=== PATIENT | female | born 1965 | race Caucasian/White ===

== ENCOUNTER 2021-10-12 18:28 | Emergency (ER) | payer OTHER ==
[2021-10-12 19:17] LABS: BASOPHIL 0.5 % (0-2); EOSINOPHIL 2.8 % (0-5); HCT 37.6 % (37.0-47.0); HGB 12.1 g/dl (12.5-16.0); LYMPHOCYTE 23.4 % (15-48); MCH 28.6 pg (25.0-31.0); MCHC 32.2 g/dL (32.0-36.0); MCV 88.9 fL (78.0-100.0); MONOCYTE 5.4 % (0-12); MPV 10.4 fL (6.0-9.5); NEUTROPHIL 66.5 % (41-80); NRBC 0; PLT 333 K/uL (150-400); RBC 4.23 M/uL (4.20-5.40); WBC 14.1 K/uL (4.0-10.5)
[2021-10-12 19:36] LABS: ALBUMIN 3.5 g/dL (3.4-5.0); BILIRUBIN - TOTAL 0.2 mg/dL (0.2-1.0); BUN/CREAT RATIO (CALC) 17.3 RATIO; CREATININE 0.75 mg/dL (0.51-0.95); GLOBULIN (CALCULATION) 4.6 g/dL; POTASSIUM 4.2 mmol/L (3.5-5.1); TOTAL PROTEIN 8.1 g/dL (6.4-8.2)
[2021-10-12] MEDS ORDERED: ONDANSETRON ODT4 MG PO (22:46)
[2021-10-12] MEDS ORDERED: OXY-IR 5MG5 MG PO (22:46)
== END 2021-10-12 22:55 | disposition home or self-care (01) ==
LOC: FER 18:28
PROVIDERS: Emergency Medicine
DX: N83.201 Unspecified ovarian cyst, right side (principal); R11.0 Nausea
CPT/HCPCS: 36415; 76830; 80053; 83690; 85025; J1170; J2405; J7030; Q9967